=== PATIENT | male | born 1960 | race Caucasian/White ===

== ENCOUNTER 2024-04-20 09:38 | Inpatient (IN) ==
[2024-04-20 10:17] LABS: INR 1.19 (0.85-1.14)
[2024-04-20 10:25] LABS: Hemoglobin 13.6 g/dL (13.2-16.3); Mean Corpuscular Hemoglobin 27.9 pg (27-33); Mean Corpuscular Hgb Conc 34.1 g/dL (31-36); Mean Corpuscular Volume 81.9 fL (80-97); Mean Platelet Volume 9.4 fL (7.5-11.2); Platelet Count 192 10^3/uL (150-450); Red Blood Count 4.88 10^6/uL (4.06-5.63); Red Cell Distribution Width 12.7 % (12-17); White Blood Count 15.7 10^3/uL (3.6-10.2)
[2024-04-20 10:53] LABS: ABS Basophils 0.1 10^3/uL (0.0-0.1); ABS Lymphocytes 1.8 10^3/uL (1.0-4.8); ABS Monocytes 1.8 10^3/uL (0.0-1.1); ABS Neutrophils 12.1 10^3/uL (1.5-7.6); Eosinophil % 0.1 %; Lymphocyte % 11.3 %
[2024-04-20 10:56] LABS: Albumin 4.1 g/dL (3.2-5.2); Albumin/Globulin Ratio 1.8 (1-3); Calcium 9.2 mg/dL (8.6-10.3); Creatinine, Serum 1.04 mg/dL (0.67-1.17); Globulin 2.3 g/dL (2-4); Potassium 4.1 mmol/L (3.5-5.0); Total Bilirubin 1.7 mg/dL (0.2-1.0); Total Protein 6.4 g/dL (6.4-8.9); eGFR CKD-EPI 81.2 (>60)
[2024-04-20 11:28] LABS: High Sensitivity Troponin 1 Hr 7091 pg/mL (<20)
[2024-04-20 12:04] LABS: C Reactive Protein 118.7 mg/L (<8.01)
[2024-04-20] MEDS ORDERED: Sulfur Hexaflouride MICROSPHR 25 MG VIAL ONE (12:23)
[2024-04-20] MEDS: Iohexol 350 (CONTRAST) 500 ML MDV IV ONE (12:36)
[2024-04-20 13:21] LABS: Erythrocyte Sed Rate 15 mm/Hr (0-19)
[2024-04-20 18:59] LABS: HDL Cholesterol 41.8 mg/dL
[2024-04-20] MEDS: Enoxaparin 40 MG/0.4 ML SYR SUBCUT SCH (20:12)
[2024-04-20 21:18] LABS: T4, Total 10.64 mcg/dL (6.09-12.23)
[2024-04-20 21:21] LABS: TSH Ultra Thyroid Stim Horm 2.56 mcIU/mL (0.34-5.60)
[2024-04-21 06:03] LABS: Hematocrit 36.6 % (38-53); Hemoglobin 12.5 g/dL (13.2-16.3); Mean Corpuscular Hemoglobin 28.4 pg (27-33); Mean Corpuscular Hgb Conc 34.3 g/dL (31-36); Mean Corpuscular Volume 82.7 fL (80-97); Mean Platelet Volume 9.3 fL (7.5-11.2); Platelet Count 171 10^3/uL (150-450); Red Blood Count 4.42 10^6/uL (4.06-5.63); Red Cell Distribution Width 12.9 % (12-17); White Blood Count 14.5 10^3/uL (3.6-10.2)
[2024-04-21 06:14] LABS: ABS Basophils 0.1 10^3/uL (0.0-0.1); ABS Eosinophils 0.1 10^3/uL (0.0-0.5); ABS Lymphocytes 2.1 10^3/uL (1.0-4.8); ABS Monocytes 1.6 10^3/uL (0.0-1.1); ABS Neutrophils 10.6 10^3/uL (1.5-7.6); Eosinophil % 0.5 %; Lymphocyte % 14.6 %
[2024-04-21 06:24] LABS: ALT 119 U/L (7-52); AST 101 U/L (13-39); Albumin 3.8 g/dL (3.2-5.2); Albumin/Globulin Ratio 1.7 (1-3); Alkaline Phosphatase 59 U/L (35-149); Anion Gap 9 mmol/L (2-16); Blood Urea Nitrogen 19 mg/dL (6-24); CO2 Carbon Dioxide 25 mmol/L (22-32); Chloride 97 mmol/L (101-111); Globulin 2.3 g/dL (2-4); Glucose 126 mg/dL (70-100); Sodium 131 mmol/L (135-145); Total Bilirubin 1.7 mg/dL (0.2-1.0); Total Protein 6.1 g/dL (6.4-8.9); eGFR CKD-EPI 96.6 (>60)
[2024-04-21 10:31] LABS: CRP High Sensitivity > 80.00 mg/L (<2.00)
[2024-04-21 12:43] LABS: High Sensitivity Troponin 1 Hr 4324 pg/mL (<20)
[2024-04-21] MEDS: metroNIDAZOLE IV 500 MG/100ML 500 MG/100 ML BAG IVPB SCH (13:30)
[2024-04-21] MEDS: cefTRIAXone 1 gm/50 mL D5W 1 GM/50 ML BAG IV SCH (15:39)
[2024-04-21 19:02] LABS: Hepatitis A Ab IgM Negative (Negative)
[2024-04-21 19:03] LABS: Hepatitis B Core IgM Nonreactive (Nonreactive)
[2024-04-21 19:13] LABS: Hepatitis B Surface Antigen Nonreactive (Nonreactive)
[2024-04-21 19:15] LABS: Hepatitis C Antibody Negative (Negative)
[2024-04-22] MEDS ORDERED: Atropine 0.1 MG/ML 10 ml SYR (1 mg) IV PUSH PRN (03:57)
[2024-04-22 04:26] LABS: ABS Basophils 0.1 10^3/uL (0.0-0.1); ABS Eosinophils 0.2 10^3/uL (0.0-0.5); ABS Lymphocytes 2.2 10^3/uL (1.0-4.8); ABS Neutrophils 8.1 10^3/uL (1.5-7.6); ABS Nucleated RBC 0.01 10^3/ul; Eosinophil % 1.3 %; Hematocrit 34.3 % (38-53); Hemoglobin 11.9 g/dL (13.2-16.3); Lymphocyte % 18.9 %; Mean Corpuscular Hemoglobin 28.4 pg (27-33); Mean Corpuscular Hgb Conc 34.8 g/dL (31-36); Mean Corpuscular Volume 81.7 fL (80-97); Mean Platelet Volume 9.4 fL (7.5-11.2); Nucleated Red Blood Cells % 0.1 %/100WBC (0.0-0.8); Platelet Count 195 10^3/uL (150-450); Red Cell Distribution Width 12.8 % (12-17); White Blood Count 11.5 10^3/uL (3.6-10.2)
[2024-04-22 04:55] LABS: High Sensitivity Troponin 1 Hr 3709 pg/mL (<20)
[2024-04-22 05:03] LABS: Calcium 8.5 mg/dL (8.6-10.3); Creatinine, Serum 0.88 mg/dL (0.67-1.17); Potassium 4.1 mmol/L (3.5-5.0); eGFR CKD-EPI 97.2 (>60)
[2024-04-22 06:06] LABS: High Sensitivity Troponin 3 Hr 4045 pg/mL (<20)
[2024-04-22] MEDS ORDERED: VERAPAMIL 2.5 MG/ML 2 ML VIAL ** 5 mg/2 ml ONE (09:47)
[2024-04-22] MEDS ORDERED: Midazolam 5 mg/5 ml VIAL 1 mg/ml 5 ml VIAL (5 mg) ONE (09:47)
[2024-04-22] MEDS ORDERED: fentaNYL 100 mcg/2 ml 50 MCG/ML VIAL ONE (09:47)
[2024-04-22] MEDS ORDERED: Heparin 1,000 UNIT/ML 10 ml (10,000 UNITS) CATHLAB/DIALYSIS ONE (09:48)
[2024-04-22] MEDS ORDERED: Heparin 2 UNITS/ML 1000 mls 2,000 ML IV ONE (09:48)
[2024-04-22] MEDS ORDERED: Iohexol 350 (CONTRAST) 200 ML MDV IV ONE (09:48)
[2024-04-22] MEDS ORDERED: Lidocaine 1% MPF 5 ML VIAL ONE (09:48)
[2024-04-22] MEDS ORDERED: nitroGLYCERIN DRIP 25,000 MCG/250 ML BTL ONE (09:48)
[2024-04-22] MEDS ORDERED: Iohexol 350 (CONTRAST) 100 ML PAK IV ONE (11:00)
[2024-04-22] MEDS: NS 0.9% 1000 ml BAG 1,000 ML IV SCH (11:57)
[2024-04-22] MEDS ORDERED: Sulfur Hexaflouride MICROSPHR 25 MG VIAL IV PRN ×2 (12:57→16:38)
[2024-04-22] MEDS: Enoxaparin 80 MG/0.8 ML SYR SUBCUT ONE (17:12)
[2024-04-22] MEDS: Enoxaparin 80 MG/0.8 ML SYR SUBCUT SCH (17:15)
[2024-04-23 04:02] LABS: ABS Basophils 0.1 10^3/uL (0.0-0.1); ABS Eosinophils 0.3 10^3/uL (0.0-0.5); ABS Lymphocytes 1.6 10^3/uL (1.0-4.8); ABS Monocytes 0.8 10^3/uL (0.0-1.1); ABS Neutrophils 6.5 10^3/uL (1.5-7.6); ABS Nucleated RBC 0.01 10^3/ul; Eosinophil % 2.8 %; Hematocrit 34.4 % (38-53); Lymphocyte % 17.8 %; Mean Corpuscular Hemoglobin 28.6 pg (27-33); Mean Corpuscular Hgb Conc 34.8 g/dL (31-36); Mean Corpuscular Volume 82.3 fL (80-97); Mean Platelet Volume 9.6 fL (7.5-11.2); Nucleated Red Blood Cells % 0.1 %/100WBC (0.0-0.8); Platelet Count 236 10^3/uL (150-450); Red Blood Count 4.18 10^6/uL (4.06-5.63); Red Cell Distribution Width 12.7 % (12-17); White Blood Count 9.2 10^3/uL (3.6-10.2)
[2024-04-23 04:14] LABS: Calcium 8.4 mg/dL (8.6-10.3); Creatinine, Serum 0.91 mg/dL (0.67-1.17); eGFR CKD-EPI 95.3 (>60)
[2024-04-23] MEDS: Enoxaparin 80 MG/0.8 ML SYR SUBCUT SCH (04:16)
[2024-04-23] MEDS: Sulfur Hexaflouride MICROSPHR 25 MG VIAL IV PRN (10:12)
[2024-04-23 14:32] LABS: EBV Capsid Ag IgG Ab Positive (Negative); EBV Capsid Ag IgM Ab Negative (Negative); Epstein-Barr Nuclear Antigen Positive (Negative)
[2024-04-24 07:29] LABS: Calcium 8.4 mg/dL (8.6-10.3); Creatinine, Serum 0.95 mg/dL (0.67-1.17); Magnesium 2.1 mg/dL (1.9-2.7); Potassium 4.2 mmol/L (3.5-5.0); eGFR CKD-EPI 90.5 (>60)
[2024-04-24 08:31] LABS: Hematocrit 34.4 % (38-53); Hemoglobin 11.7 g/dL (13.2-16.3); Mean Corpuscular Hemoglobin 28.3 pg (27-33); Mean Corpuscular Volume 83.3 fL (80-97); Platelet Count 235 10^3/uL (150-450); Red Blood Count 4.14 10^6/uL (4.06-5.63); Red Cell Distribution Width 12.7 % (12-17); White Blood Count 8.5 10^3/uL (3.6-10.2)
[2024-04-24 09:48] VITALS: BP 119/81
== END 2024-04-24 12:40 | disposition home or self-care (01) | DRG 287 ==
LOC: ED 09:38 → EDHOLD 09:38 → OBSVTOIN 14:03 → INTOOBSV 14:30 → MEDTELE 16:37 → ICU 04-22 02:56 → MEDTELE 04-23 09:10
PROVIDERS: ADMIT Internal Medicine; ATTEND Internal Medicine

== ENCOUNTER 2024-07-10 11:32 | Inpatient (IN) ==
[2024-07-10] MEDS: Lactated Ringers 1000 ml BAG 1,000 ML IV ONE (12:11)
[2024-07-10 12:24] LABS: ABS Basophils 0.1 10^3/uL (0.0-0.1); ABS Eosinophils 0.1 10^3/uL (0.0-0.5); ABS Lymphocytes 1.3 10^3/uL (1.0-4.8); ABS Monocytes 1.2 10^3/uL (0.0-1.1); ABS Neutrophils 9.1 10^3/uL (1.5-7.6); ABS Nucleated RBC 0.01 10^3/ul; Hematocrit 35.6 % (38-53); Hemoglobin 12.1 g/dL (13.2-16.3); Lymphocyte % 11.1 %; Mean Corpuscular Hemoglobin 27.1 pg (27-33); Mean Corpuscular Volume 79.6 fL (80-97); Mean Platelet Volume 9.4 fL (7.5-11.2); Platelet Count 286 10^3/uL (150-450); Red Blood Count 4.47 10^6/uL (4.06-5.63); Red Cell Distribution Width 14.7 % (12-17); White Blood Count 11.8 10^3/uL (3.6-10.2)
[2024-07-10 12:57] LABS: Albumin 3.5 g/dL (3.2-5.2); Albumin/Globulin Ratio 1.2 (1-3); Calcium 8.8 mg/dL (8.6-10.3); Creatinine, Serum 0.91 mg/dL (0.67-1.17); Globulin 2.9 g/dL (2-4); Potassium 3.8 mmol/L (3.5-5.0); Total Bilirubin 1.1 mg/dL (0.2-1.0); Total Protein 6.4 g/dL (6.4-8.9); eGFR CKD-EPI 95.3 (>60)
[2024-07-10 13:04] LABS: INR 1.24 (0.85-1.14)
[2024-07-10] MEDS: Iohexol 350 (CONTRAST) 500 ML MDV IV ONE (13:47)
[2024-07-10 14:07] LABS: High Sensitivity Troponin 1 Hr 19 pg/mL (<20)
[2024-07-10] MEDS: Furosemide 40 mg/4 ml IV VIAL IV SLOW PU ONE (18:11)
[2024-07-10] MEDS: Potassium Chloride LIQUID 20 MEQ/15 ML LIQUID PO ONE (20:33)
[2024-07-10] MEDS: Enoxaparin 40 MG/0.4 ML SYR SUBCUT SCH (20:34)
[2024-07-11 08:36] LABS: ABS Basophils 0.1 10^3/uL (0.0-0.1); ABS Eosinophils 0.2 10^3/uL (0.0-0.5); ABS Lymphocytes 1.4 10^3/uL (1.0-4.8); ABS Monocytes 1.3 10^3/uL (0.0-1.1); ABS Neutrophils 8.1 10^3/uL (1.5-7.6); Eosinophil % 1.7 %; Hematocrit 34.7 % (38-53); Hemoglobin 11.9 g/dL (13.2-16.3); Lymphocyte % 12.8 %; Mean Corpuscular Hemoglobin 27.5 pg (27-33); Mean Corpuscular Hgb Conc 34.3 g/dL (31-36); Mean Corpuscular Volume 80.3 fL (80-97); Mean Platelet Volume 9.3 fL (7.5-11.2); Platelet Count 327 10^3/uL (150-450); Red Blood Count 4.31 10^6/uL (4.06-5.63); Red Cell Distribution Width 15.2 % (12-17); White Blood Count 11.1 10^3/uL (3.6-10.2)
[2024-07-11 09:00] LABS: Anion Gap 11 mmol/L (2-16); Blood Urea Nitrogen 17 mg/dL (6-24); C Reactive Protein 263.89 mg/L (<8.01); CO2 Carbon Dioxide 25 mmol/L (22-32); Calcium 8.6 mg/dL (8.6-10.3); Chloride 97 mmol/L (101-111); Creatinine, Serum 0.99 mg/dL (0.67-1.17); Glucose 107 mg/dL (70-100); Magnesium 1.9 mg/dL (1.9-2.7); Potassium 4.4 mmol/L (3.5-5.0); Sodium 133 mmol/L (135-145); eGFR CKD-EPI 86.1 (>60)
[2024-07-11] MEDS: Sulfur Hexaflouride MICROSPHR 25 MG VIAL IV PRN (10:47)
[2024-07-11] MEDS: cefTRIAXone 1 gm/50 mL D5W 1 GM/50 ML BAG IV SCH (11:51)
[2024-07-11] MEDS: Azithromycin 500 mg/250 ml NS 500 MG/250 ML BAG IVPB SCH (12:40)
[2024-07-11] MEDS ORDERED: Diltiazem Infusion @ 5 MG/HR - (MEDTELE ONLY, no titration) IV SCH (16:00)
[2024-07-11 16:32] LABS: % Iron Saturation 9 % (15-55); .Transferrin 161 mg/dL (203-362); Cholesterol 90 mg/dL; HDL Cholesterol 18.7 mg/dL; Iron < 20 ug/dL (50-212); LDL Cholesterol 52 mg/dL; Total Iron Binding Capacity 225 mcg/dL (250-450); Triglycerides 98 mg/dL; Unsaturated Iron Binding 205 ug/dL
[2024-07-11 16:51] LABS: Ferritin 534.4 ng/mL (24-336)
[2024-07-12 06:22] LABS: ABS Basophils 0.1 10^3/uL (0.0-0.1); ABS Eosinophils 0.3 10^3/uL (0.0-0.5); ABS Lymphocytes 1.6 10^3/uL (1.0-4.8); ABS Monocytes 1.2 10^3/uL (0.0-1.1); ABS Neutrophils 6.2 10^3/uL (1.5-7.6); ABS Nucleated RBC 0.01 10^3/ul; Hematocrit 34.4 % (38-53); Hemoglobin 11.3 g/dL (13.2-16.3); Lymphocyte % 17.5 %; Mean Corpuscular Hemoglobin 26.9 pg (27-33); Mean Corpuscular Volume 81.6 fL (80-97); Nucleated Red Blood Cells % 0.1 %/100WBC (0.0-0.8); Platelet Count 336 10^3/uL (150-450); Red Blood Count 4.21 10^6/uL (4.06-5.63); Red Cell Distribution Width 14.5 % (12-17); White Blood Count 9.4 10^3/uL (3.6-10.2)
[2024-07-12 06:52] LABS: Creatinine, Serum 0.9 mg/dL (0.67-1.17); Potassium 4.3 mmol/L (3.5-5.0); eGFR CKD-EPI 96.6 (>60)
[2024-07-12] MEDS ORDERED: Sulfur Hexaflouride MICROSPHR 25 MG VIAL IV PRN (12:32)
[2024-07-13 06:01] LABS: ABS Basophils 0.1 10^3/uL (0.0-0.1); ABS Eosinophils 0.3 10^3/uL (0.0-0.5); ABS Lymphocytes 1.5 10^3/uL (1.0-4.8); ABS Monocytes 0.8 10^3/uL (0.0-1.1); ABS Neutrophils 5.3 10^3/uL (1.5-7.6); Eosinophil % 3.4 %; Hematocrit 32.7 % (38-53); Hemoglobin 11.1 g/dL (13.2-16.3); Lymphocyte % 19.4 %; Mean Corpuscular Hemoglobin 27.5 pg (27-33); Mean Corpuscular Volume 80.9 fL (80-97); Mean Platelet Volume 8.6 fL (7.5-11.2); Platelet Count 373 10^3/uL (150-450); Red Blood Count 4.05 10^6/uL (4.06-5.63); Red Cell Distribution Width 14.9 % (12-17)
[2024-07-13 06:20] LABS: Calcium 8.6 mg/dL (8.6-10.3); Creatinine, Serum 0.97 mg/dL (0.67-1.17); Magnesium 2.1 mg/dL (1.9-2.7); Potassium 4.3 mmol/L (3.5-5.0); eGFR CKD-EPI 88.3 (>60)
[2024-07-14 06:23] LABS: Hematocrit 31.2 % (38-53); Hemoglobin 10.6 g/dL (13.2-16.3); Mean Corpuscular Hemoglobin 27.5 pg (27-33); Mean Corpuscular Volume 80.7 fL (80-97); Mean Platelet Volume 8.6 fL (7.5-11.2); Platelet Count 393 10^3/uL (150-450); Red Blood Count 3.87 10^6/uL (4.06-5.63); Red Cell Distribution Width 14.7 % (12-17); White Blood Count 6.6 10^3/uL (3.6-10.2)
[2024-07-14 06:45] LABS: C Reactive Protein 78.43 mg/L (<8.01); Calcium 8.1 mg/dL (8.6-10.3); Creatinine, Serum 0.89 mg/dL (0.67-1.17); Magnesium 2.2 mg/dL (1.9-2.7); Potassium 4.5 mmol/L (3.5-5.0); eGFR CKD-EPI 96.9 (>60)
[2024-07-14 13:50] VITALS: BP 141/91
== END 2024-07-14 17:05 | disposition home or self-care (01) | DRG 315 ==
LOC: EDHOLD 11:32 → ED 11:32 → SUATTDRO 16:31 → MED 17:50 → MEDTELE 07-11 18:44
PROVIDERS: ADMIT Student in an Organized Health Care Education/Training Program; ATTEND Internal Medicine